=== PATIENT | male | born 1995 | race Caucasian/White ===

== ENCOUNTER 2019-03-28 21:36 | Emergency (ER) | payer OTHER ==
[~2019-03-28] VITALS: Ht 167.6 cm; Wt 104.3 kg
[2019-03-28 22:45] VITALS: BP 154/79
== END 2019-03-28 22:45 | disposition home or self-care (01) ==
LOC: M.ERS 21:36
DX: J02.9 Acute pharyngitis, unspecified (principal); B34.9 Viral infection, unspecified; Z88.1 Allergy status to other antibiotic agents